=== PATIENT | female | born 2000 | race Caucasian/White ===

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

== ENCOUNTER 2019-07-18 18:48 | Emergency (ER) | payer OTHER ==
[2019-07-18] MEDS ORDERED: NORMAL SALINE 1000 ML 1,000 ML IV ONE (19:27)
--- NOTE | 2019-07-18 19:28 | ER Document Report ---
ED Medical Screen (RME) - General Chief Complaint: Abdominal Pain Stated Complaint: ABDOMINAL PAIN Time Seen by Provider: 07/18/19 19:19 Mode of Arrival: Ambulatory Information source: Patient Notes: 19-year-old female presented to ED for periumbilical abdominal pain. She states she just stopped her cycle yesterday so she thought it was just cramping from post menstrual cycle. She states that the pain kept getting worse and she got nauseated. She states she has not had any fever. She states she ate pizza and cheese sticks about 2 hours ago but she already had the pain before this. Her bowel sounds are very hyperactive at this time. Abdomen is not firm. Patient states she feels like she is on her throat but she has not thrown up yet. She does not smoke drink or use any drugs. Patient states she is having normal bowel movements and has had several today but has not had any diarrhea. I have greeted and performed a rapid initial assessment of this patient. A comprehensive ED assessment and evaluation of the patient, analysis of test results and completion of medical decision making process will be conducted by an additional ED providers. TRAVEL OUTSIDE OF THE [place] IN LAST 30 DAYS: No - Related Data Allergies/Adverse Reactions: aripiprazole [From Abilify] Allergy (Verified 07/18/19 18:49) lamotrigine [From Lamictal] Allergy (Verified 07/18/19 18:49) Past Medical History - Social History Chew tobacco use (# tins/day): No Frequency of alcohol use: None Drug Abuse: None Pulmonary Medical History: Reports: Hx Asthma Renal/ Medical History: Denies: Hx Peritoneal Dialysis Musculoskeltal Medical History: Reports Hx Musculoskeletal Trauma Psychiatric Medical History: Reports: Hx Depression Traumatic Medical History: Reports: Hx Fractures - Right foot - Immunizations Immunizations up to date: No Hx Diphtheria, Pertussis, Tetanus Vaccination: No - She does not remember when she got the last tetanus shot History of Influenza Vaccine for 08/2017 - 01/2018 Season: Unknown Physical Exam - Vital signs Vitals: Temp Pulse Resp BP Pulse Ox 98.6 F 91 20 124/75 98 07/18/19 18:55 07/18/19 18:55 07/18/19 18:55 07/18/19 18:55 07/18/19 18:55 Course - Vital Signs Vital signs: Temp Pulse Resp BP Pulse Ox 98.6 F 91 20 124/75 98 07/18/19 18:55 07/18/19 18:55 07/18/19 18:55 07/18/19 18:55 07/18/19 18:55
[2019-07-18 20:14] LABS: ABSOLUTE BASOPHILS # (AUTO) 0.1 10^3/uL (0.0-0.2); ABSOLUTE EOSINOPHILS # (AUTO) 0.1 10^3/uL (0.0-0.6); ABSOLUTE LYMPHOCYTES (AUTO) 1.6 10^3/uL (0.5-4.7); ABSOLUTE MONOCYTES (AUTO) 0.3 10^3/uL (0.1-1.4); ABSOLUTE NEUT (AUTO) 2.1 10^3/uL (1.7-8.2); BASOPHILS % (AUTO) 1.4 % (0-2); HEMATOCRIT 30.1 % (36.0-47.0); HEMOGLOBIN 9.9 g/dL (12.0-15.5); LYMPHOCYTES % (AUTO) 38.1 % (13-45); MEAN CORPUSCULAR HEMOGLOBIN 24.6 pg (27.0-33.4); MEAN CORPUSCULAR HGB CONC 32.9 g/dL (32.0-36.0); MEAN CORPUSCULAR VOLUME 75 fl (80-97); MONOCYTES % (AUTO) 7.8 % (3-13); PLATELET COUNT 245 10^3/uL (150-450); RED BLOOD COUNT 4.03 10^6/uL (3.72-5.28); SEGMENTED NEUTROPHILS % (AUTO) 50.7 % (42-78); TOTAL CELLS COUNTED % (AUTO) 100 %; WHITE BLOOD COUNT 4.2 10^3/uL (4.0-10.5)
[2019-07-18 20:18] LABS: APPEARANCE,URINE SLIGHTLY-CLOUDY; BILIRUBIN,URINE NEGATIVE (NEGATIVE); COLOR,URINE YELLOW; GLUCOSE, URINE NEGATIVE (NEGATIVE); KETONES,URINE NEGATIVE (NEGATIVE); LEUKOCYTE ESTERASE,URINE TRACE (NEGATIVE); NITRITE,URINE NEGATIVE (NEGATIVE); PROTEIN,URINE NEGATIVE (NEGATIVE); URINE SPECIFIC GRAVITY 1.011; UROBILINOGEN,URINE NEGATIVE mg/dL (<2.0)
[2019-07-18 20:45] LABS: ALKALINE PHOSPHATASE 71 U/L (38-126); ANION GAP 13 (5-19); ASPARTATE AMINO TRANSFERASE 26 U/L (14-36); BILIRUBIN,DIRECT 0.2 mg/dL (0.0-0.4); BILIRUBIN,TOTAL 0.2 mg/dL (0.2-1.3); BLOOD UREA NITROGEN 12 mg/dL (7-20); CALCIUM 9.9 mg/dL (8.4-10.2); CARBON DIOXIDE 25 mmol/L (22-30); CHLORIDE 104 mmol/L (98-107); GLUCOSE 100 mg/dL (75-110); TOTAL PROTEIN 8.1 g/dL (6.3-8.2)
[2019-07-18] MEDS ORDERED: ONDANSETRON ODT 4 MG TAB (6 TAB/ER DISP) PO PRN (21:44)
--- NOTE | 2019-07-18 21:44 | ER Document Report ---
ED GI/ - General Chief Complaint: Abdominal Pain Stated Complaint: ABDOMINAL PAIN Time Seen by Provider: 07/18/19 19:19 Mode of Arrival: Ambulatory Notes: Patient is an otherwise healthy 19-year-old female presents emergency department chief complaint of mid abdominal pain with nausea that began just prior to arrival. Patient reports she had had the symptoms for approximately 30 minutes before she came to the ED. Patient reports from the pain first started she thought maybe it was menstrual cramps. She states that the pain persisted so she came to the ER. Patient reports immediately after pain started she ate pizza and cheese sticks but reports she has not been hungry since that time. She does feel nausea but has not vomited or had any diarrhea. Patient denies history of any abdominal surgeries. TRAVEL OUTSIDE OF THE [place] IN LAST 30 DAYS: No - Related Data Allergies/Adverse Reactions: aripiprazole [From Abilify] Allergy (Verified 07/18/19 18:49) lamotrigine [From Lamictal] Allergy (Verified 07/18/19 18:49) Past Medical History - General Information source: Patient - Social History Smoking Status: Never Smoker Chew tobacco use (# tins/day): No Frequency of alcohol use: None Drug Abuse: None Family History: Reviewed & Not Pertinent Patient has suicidal ideation: No Patient has homicidal ideation: No Pulmonary Medical History: Reports: Hx Asthma Renal/ Medical History: Denies: Hx Peritoneal Dialysis Musculoskeletal Medical History: Reports Hx Musculoskeletal Trauma Psychiatric Medical History: Reports: Hx Depression Traumatic Medical History: Reports: Hx Fractures - Right foot - Immunizations Immunizations up to date: No Hx Diphtheria, Pertussis, Tetanus Vaccination: No - She does not remember when she got the last tetanus shot Review of Systems - Review of Systems Constitutional: No symptoms reported EENT: No symptoms reported Cardiovascular: No symptoms reported Respiratory: No symptoms reported Gastrointestinal: Abdominal pain, Nausea Genitourinary: No symptoms reported Female Genitourinary: No symptoms reported Musculoskeletal: No symptoms reported Skin: No symptoms reported Hematologic/Lymphatic: No symptoms reported Neurological/Psychological: No symptoms reported Physical Exam - Vital signs Vitals: Temp Pulse Resp BP Pulse Ox 98.6 F 91 20 124/75 98 07/18/19 18:55 07/18/19 18:55 07/18/19 18:55 07/18/19 18:55 07/18/19 18:55 - Notes Notes: PHYSICAL EXAMINATION: GENERAL: Well-appearing, well-nourished and in no acute distress. HEAD: Atraumatic, normocephalic. EYES: Pupils equal round and reactive to light, extraocular movements intact, conjunctiva are normal. ENT: Nares patent, oropharynx clear without exudates. Moist mucous membranes. NECK: Normal range of motion, supple without lymphadenopathy LUNGS: Breath sounds clear to auscultation bilaterally and equal. No wheezes rales or rhonchi. HEART: Regular rate and rhythm without murmurs ABDOMEN: Soft, nondistended abdomen. Mild mid-abd tenderness. No guarding, no rebound. No masses appreciated. Female : deferred Musculoskeletal: Normal range of motion, no pitting or edema. No cyanosis. NEUROLOGICAL: Cranial nerves grossly intact. Normal speech, normal gait. Normal sensory, motor exams PSYCH: Normal mood, normal affect. SKIN: Warm, Dry, normal turgor, no rashes or lesions noted. Course - Re-evaluation Re-evalutation: Laboratory 07/18/19 07/18/19 07/18/19 19:29 19:29 19:29 WBC 4.2 RBC 4.03 Hgb 9.9 L Hct 30.1 L MCV 75 L MCH 24.6 L MCHC 32.9 RDW 15.0 H Plt Count 245 Lymph % (Auto) 38.1 [place] % (Auto) 7.8 Eos % (Auto) 2.0 Baso % (Auto) 1.4 Absolute Neuts (auto) 2.1 Absolute Lymphs (auto) 1.6 Absolute Monos (auto) 0.3 Absolute Eos (auto) 0.1 Absolute Basos (auto) 0.1 Seg Neutrophils % 50.7 Sodium 142.3 Potassium 4.0 Chloride 104 Carbon Dioxide 25 Anion Gap 13 BUN 12 Creatinine 0.67 Est GFR ( Amer) > 60 Est GFR (MDRD) Non-Af > 60 Glucose 100 Calcium 9.9 Total Bilirubin 0.2 Direct Bilirubin 0.2 Neonat Total Bilirubin Not Reportable Neonat Direct Bilirubin Not Reportable Neonat Indirect Bili Not Reportable AST 26 ALT 14 Alkaline Phosphatase 71 Total Protein 8.1 Albumin 5.0 Lipase 145.8 Serum HCG, Qual NEGATIVE Urine Color Urine Appearance Urine pH Ur Specific [place] Urine Protein Urine Glucose (UA) Urine Ketones Urine Blood Urine Nitrite Urine Bilirubin Urine Urobilinogen Ur Leukocyte Esterase Urine WBC (Auto) Urine RBC (Auto) Squamous Epi Cells Auto Urine Mucus (Auto) Urine Ascorbic Acid 07/18/19 19:29 WBC RBC Hgb Hct MCV MCH MCHC RDW Plt Count Lymph % (Auto) [place] % (Auto) Eos % (Auto) Baso % (Auto) Absolute Neuts (auto) Absolute Lymphs (auto) Absolute Monos (auto) Absolute Eos (auto) Absolute Basos (auto) Seg Neutrophils % Sodium Potassium Chloride Carbon Dioxide Anion Gap BUN Creatinine Est GFR ( Amer) Est GFR (MDRD) Non-Af Glucose Calcium Total Bilirubin Direct Bilirubin Neonat Total Bilirubin Neonat Direct Bilirubin Neonat Indirect Bili AST ALT Alkaline Phosphatase Total Protein Albumin Lipase Serum HCG, Qual Urine Color YELLOW Urine Appearance SLIGHTLY-CLOUDY Urine pH 7.0 Ur Specific [place] 1.011 Urine Protein NEGATIVE Urine Glucose (UA) NEGATIVE Urine Ketones NEGATIVE Urine Blood NEGATIVE Urine Nitrite NEGATIVE Urine Bilirubin NEGATIVE Urine Urobilinogen NEGATIVE Ur Leukocyte Esterase TRACE H Urine WBC (Auto) 4 Urine RBC (Auto) 0 Squamous Epi Cells Auto 4 Urine Mucus (Auto) RARE Urine Ascorbic Acid NEGATIVE Ptaient appears well, no pain on re-examination. Labs as recorded above are unremarkable. Encouraged patient to return if pain persists or become worse as outlined in d/c papers. Pt and spouse in agreeance with plan of care. - Vital Signs Vital signs: Temp Pulse Resp BP Pulse Ox 99.1 F 87 16 115/87 H 100 07/18/19 21:53 07/18/19 21:53 07/18/19 21:53 07/18/19 21:53 07/18/19 21:53 - Laboratory Result Diagrams: 07/18/19 19:29 07/18/19 19:29 Laboratory results interpreted by me: 07/18/19 07/18/19 19:29 19:29 Hgb 9.9 L Hct 30.1 L MCV 75 L MCH 24.6 L RDW 15.0 H Ur Leukocyte Esterase TRACE H Discharge - Discharge Clinical Impression: Abdominal pain Qualifiers: Abdominal location: periumbilical Qualified Code(s): R10.33 - Periumbilical pain Condition: Stable Disposition: HOME, SELF-CARE Additional Instructions: Abdominal Pain There are many causes of abdominal pain. Pain can mean a serious problem requiring surgery (such as appendicitis). It can also be an innocent problem th at goes away on its own (such as a viral infection). Often, time must pass to determine the cause of pain. The physician does not feel that hospitalization is necessary, at present. Things may change within the next 24 hours. Call the doctor or come back for re- examination if any problems occur, such as: (1) Pain that becomes more severe, steady, or becomes concentrated in one specific area. Also, pain that is more severe with movement or coughing. (2) Vomiting that persists or becomes more frequent. (3) Blood in the vomitus, urine, or bowel movements. Blood in the stool may have a tarry or black appearance. (4) Shaking chills or fever greater than 100 degrees F. (5) The abdomen becomes more distended or swollen. (6) Bowel movements cease. (7) Failure to improve as expected. Observation for Appendicitis At this time, the abdominal pain does not seem to be appendicitis. Our next "test" will be passage of time. If you have early appendicitis, signs will appear to help us make the diagnosis. Most of the time, the pain goes away. In these cases, the pain is usually due to a virus in the lymph glands near the appendix, or due to an ovarian cyst or ovulation. Unless the pain is gone, you should come back for a recheck. This is usually done in 8 to 12 hours. Be sure you understand your follow-up instructions. Come back immediately if: (1) the pain becomes much more severe and sharply increases with movement or coughing, (2) vomiting becomes frequent, (3) there is blood in the vomit, urine, or bowel movements, (4) there are shaking chills or fever, or (5) the abdomen becomes more distended or swollen. Take nausea medication as prescribed. As we discussed please return to the emergency department if you develop any of the above symptoms or worsen in any way. Prescriptions: Ondansetron [Zofran Odt 4 mg Tablet] 1 - 2 tab PO Q4H PRN #15 tab.rapdis PRN Reason: For Nausea/Vomiting
[2019-07-18 21:55] VITALS: BP 115/87
== END 2019-07-18 21:56 | disposition home or self-care (01) ==
LOC: ER 18:48
DX: R10.33 Periumbilical pain (principal); R11.0 Nausea; J45.909 Unspecified asthma, uncomplicated
CPT/HCPCS: 99284; 96360; 36415; 83690; 84703; 85025; 80053; 81001; J7030

== ENCOUNTER 2020-05-07 17:52 | Emergency (ER) | payer OTHER ==
--- NOTE | 2020-05-07 18:07 | ER Document Report ---
ED Medical Screen (RME) - General Chief Complaint: Cat Bite Stated Complaint: CAT SCRATCHES/LEFT LEG Time Seen by Provider: 05/07/20 18:06 Mode of Arrival: Ambulatory Information source: Patient Notes: 20-year presents to ED today for a cat scratch on Saturday. She states that she was trying to feed a stray cat food when it attacked her biting and scratching her. She states she does not know if his immunizations are up-to-date she does not know if the cat is healthy and she does not know the cat. She does not know when her last tetanus was. I have ordered tetanus and rabies and she will get a CBC chemistry and blood culture and be seen in the emergency room. I have greeted and performed a rapid initial assessment of this patient. A comprehensive ED assessment and evaluation of the patient, analysis of test results and completion of medical decision making process will be conducted by an additional ED providers. TRAVEL OUTSIDE OF THE [place] IN LAST 30 DAYS: No - Related Data Allergies/Adverse Reactions: aripiprazole [From Abilify] Allergy (Verified 05/07/20 18:02) lamotrigine [From Lamictal] Allergy (Verified 05/07/20 18:02) Past Medical History - Social History Chew tobacco use (# tins/day): No Frequency of alcohol use: None Drug Abuse: None Pulmonary Medical History: Reports: Hx Asthma Renal/ Medical History: Denies: Hx Peritoneal Dialysis Musculoskeltal Medical History: Reports Hx Musculoskeletal Trauma Psychiatric Medical History: Reports: Hx Depression Traumatic Medical History: Reports: Hx Fractures - Right foot - Immunizations Immunizations up to date: No Hx Diphtheria, Pertussis, Tetanus Vaccination: No - She does not remember when she got the last tetanus shot Physical Exam - Vital signs Vitals: Temp Pulse Resp BP 99.0 F 115 H 16 132/80 H 05/07/20 17:57 05/07/20 17:57 05/07/20 17:57 05/07/20 17:57 Course - Vital Signs Vital signs: Temp Pulse Resp BP Pulse Ox 99 F 115 H 16 132/80 H 05/07/20 18:03 05/07/20 17:57 05/07/20 17:57 05/07/20 17:57
[2020-05-07] MEDS ORDERED: DIPH/PERTUSS(ACELL)/TETANUS VAC/PF 0.5 ML SYR (>=10YO) IM ONE (18:12)
[2020-05-07] MEDS ORDERED: RABIES IMMUNE GLOBULIN INJ/PF 300 UNIT/ML VIAL IM ONE (18:12)
[2020-05-07] MEDS ORDERED: RABIES VACCINE (PCEC)/PF 2.5 UNIT/1 ML KIT IM ONE (18:12)
[2020-05-07 19:57] LABS: ABSOLUTE LYMPHOCYTES (AUTO) 1.3 10^3/uL (0.5-4.7); ABSOLUTE MONOCYTES (AUTO) 0.2 10^3/uL (0.1-1.4); ABSOLUTE NEUT (AUTO) 2.2 10^3/uL (1.7-8.2); BASOPHILS % (AUTO) 1.3 % (0-2); HEMATOCRIT 36.4 % (36.0-47.0); HEMOGLOBIN 12.2 g/dL (12.0-15.5); LYMPHOCYTES % (AUTO) 34.1 % (13-45); MEAN CORPUSCULAR HEMOGLOBIN 28.4 pg (27.0-33.4); MEAN CORPUSCULAR HGB CONC 33.4 g/dL (32.0-36.0); MEAN CORPUSCULAR VOLUME 85 fl (80-97); PLATELET COUNT 231 10^3/uL (150-450); RED BLOOD COUNT 4.29 10^6/uL (3.72-5.28); RED CELL DISTRIBUTION WIDTH 13.4 % (11.5-14.0); SEGMENTED NEUTROPHILS % (AUTO) 57.6 % (42-78); TOTAL CELLS COUNTED % (AUTO) 100 %; WHITE BLOOD COUNT 3.8 10^3/uL (4.0-10.5)
[2020-05-07 20:08] LABS: ALBUMIN 4.8 g/dL (3.5-5.0); ALKALINE PHOSPHATASE 78 U/L (38-126); ANION GAP 10 (5-19); ASPARTATE AMINO TRANSFERASE 21 U/L (14-36); BILIRUBIN,TOTAL 0.4 mg/dL (0.2-1.3); BLOOD UREA NITROGEN 15 mg/dL (7-20); CALCIUM 9.6 mg/dL (8.4-10.2); CARBON DIOXIDE 28 mmol/L (22-30); CHLORIDE 100 mmol/L (98-107); GLUCOSE 88 mg/dL (75-110); POTASSIUM 4.1 mmol/L (3.6-5.0)
[2020-05-07] MEDS ORDERED: AMOXICILLIN TR/POT CLAVULANATE 875-125 MG TAB PO ONE (20:50)
--- NOTE | 2020-05-07 20:55 | ER Document Report ---
ED General - General Chief Complaint: Cat Bite Stated Complaint: CAT SCRATCHES/LEFT LEG Time Seen by Provider: 05/07/20 18:06 Mode of Arrival: Ambulatory Notes: Patient is a 20-year-old white female with no reported past medical history presents to the emergency department today with a chief complaint of cat bite and scratch to the left anterior thigh that occurred on Saturday, 4 days ago. She states that she was at the [employer] and noticed a healthy-appearing white and black spotted cat and she felt that forward and attempted to try and walk up to it to feed it. She states the cat lunged at her biting and scratching the left anterior thigh and then ran off. She states the cat did not appear ill. She denies any abscess formations were significant erythema around the wounds. She denies any proximal streaking or fever. She states her last tetanus was in "middle school". She denies any significant drainage from the wound. TRAVEL OUTSIDE OF THE [place] IN LAST 30 DAYS: No - Related Data Allergies/Adverse Reactions: aripiprazole [From Abilify] Allergy (Verified 05/07/20 18:02) lamotrigine [From Lamictal] Allergy (Verified 05/07/20 18:02) Past Medical History - General Information source: Patient - Social History Smoking Status: Never Smoker Chew tobacco use (# tins/day): No Frequency of alcohol use: None Drug Abuse: None Family History: Reviewed & Not Pertinent Patient has homicidal ideation: No Pulmonary Medical History: Reports: Hx Asthma Renal/ Medical History: Denies: Hx Peritoneal Dialysis Musculoskeletal Medical History: Reports Hx Musculoskeletal Trauma Psychiatric Medical History: Reports: Hx Depression Traumatic Medical History: Reports: Hx Fractures - Right foot - Immunizations Immunizations up to date: No Hx Diphtheria, Pertussis, Tetanus Vaccination: No - She does not remember when she got the last tetanus shot Review of Systems - Review of Systems Skin: Other - Bite/puncture and abrasion -: Yes All other systems reviewed and negative Physical Exam - Vital signs Vitals: Temp Pulse Resp BP 99.0 F 115 H 16 132/80 H 05/07/20 17:57 05/07/20 17:57 05/07/20 17:57 05/07/20 17:57 - General General appearance: Appears well, Alert In distress: None - Respiratory Respiratory status: No respiratory distress Chest status: Nontender Breath sounds: Normal Chest palpation: Normal - Cardiovascular Rhythm: Regular Heart sounds: Normal auscultation - Extremities General lower extremity: Other - Full range of motion left lower extremity. Normal gait - Neurological Neuro grossly intact: Yes Cognition: Normal Orientation: AAOx4 Jannteh Coma Scale Eye Opening: Spontaneous Janneth Coma Scale Verbal: Oriented Ozark Coma Scale Motor: Obeys Commands Oz[place] Coma Scale Total: 15 Speech: Normal Motor strength normal: LUE, RUE, LLE, RLE Sensory: Normal - Psychological Associated symptoms: Normal affect, Normal mood - Skin Skin Color: Other - Multiple superficial puncture wounds to the left anterior thigh with localized erythema around the puncture wound edges. No expanding cellulitis or proximal streaking. No palpable regional lymphadenopathy. No drainage from the site. No induration or fluctuance. Course - Re-evaluation Re-evalutation: 05/07/20 20:53 Patient is complete with animal control form. Given that this was a domesticated animal that appeared healthy in nature and is living in a known location, do not feel that rabies vaccination and immunoglobulin would be pertinent in this case. Patient's tetanus was updated and she will be started on Augmentin. Counseled her regarding the importance of outpatient follow-up and advised that she return here or any ER immediately with any new, persistent or worsening symptoms. She verbalized understood and agreed. - Vital Signs Vital signs: Temp Pulse Resp BP Pulse Ox 99 F 115 H 16 132/80 H 05/07/20 18:03 05/07/20 17:57 05/07/20 17:57 05/07/20 17:57 - Laboratory Result Diagrams: 05/07/20 19:35 05/07/20 19:35 Laboratory results interpreted by me: 05/07/20 19:35 WBC 3.8 L Discharge - Discharge Clinical Impression: Cat bite Qualifiers: Encounter type: initial encounter Qualified Code(s): W55.01XA - Bitten by cat, initial encounter Condition: Stable Disposition: HOME, SELF-CARE Instructions: Animal Bites ([facility]) Additional Instructions: Follow-up with your regular doctor in 2 to 3 days for reevaluation. Return here or any ER immediately with any new, persistent or worsening symptoms. Prescriptions: Amoxicillin/Potassium Clav [Augmentin 875-125 Tablet] 1 tab PO Q12 #19 tablet
[2020-05-07 21:16] VITALS: BP 111/73
== END 2020-05-07 21:16 | disposition home or self-care (01) ==
LOC: ER 17:52
DX: S70.372A Other superficial bite of left thigh, initial encounter (principal); W55.01XA Bitten by cat, initial encounter; Y93.K9 Activity, other involving animal care; Y92.512 Supermarket, store or market as the place of occurrence of the external cause; S70.312A Abrasion, left thigh, initial encounter; W55.03XA Scratched by cat, initial encounter; Z23 Encounter for immunization; J45.909 Unspecified asthma, uncomplicated; Z88.8 Allergy status to other drugs, medicaments and biological substances
CPT/HCPCS: 99283; 96372; 90471; 90472; 36415; 87040; 85025; 80053; 90715; 90675; 90375; J3490

== ENCOUNTER 2020-08-06 01:36 | Emergency (ER) | payer OTHER ==
[2020-08-06] MEDS ORDERED: ALPRAZOLAM 0.25 MG TABLET PO ONE (03:01)
--- NOTE | 2020-08-06 03:06 | ER Document Report ---
ED General - General Chief Complaint: Tremor Stated Complaint: SPASMS Time Seen by Provider: 08/06/20 02:40 Primary Care Provider: SAIGE FIERRO MD [HONORARY] - Follow up as needed TRAVEL OUTSIDE OF THE [place] IN LAST 30 DAYS: No - HPI Context: This is a 20-year-old female who presents to the emergency department complaining of worsening "tics" that she says of been present for several months. Patient states she is seeing a psychiatrist and is currently on psychotropic medications that do not seem to be helping her symptoms. Patient states she got some "particularly bad news" regarding her family earlier tonight which has exacerbated her symptoms. Patient states nothing seems to alleviate her symptoms. Patient states she decided to come to the emergency department to "see if some special tests could be done" to give her a definite diagnosis in terms of what is causing her symptoms. Patient is complaining of tics which involve her suddenly hitting her chest with her fist or stuttering on certain words repeatedly. Patient wants to know if there is some way to discern if her symptoms are primarily anxiety driven or are neurologically driven. Associated symptoms: Other - See HPI Exacerbated by: Other - See HPI Relieved by: Other - See HPI - Related Data Allergies/Adverse Reactions: aripiprazole [From Abilify] Allergy (Verified 05/07/20 18:02) lamotrigine [From Lamictal] Allergy (Verified 05/07/20 18:02) Home Medications: Latuda. Cluming cream Past Medical History - General Information source: Patient - Social History Smoking Status: Never Smoker Chew tobacco use (# tins/day): No Frequency of alcohol use: Occasional Drug Abuse: None Family History: Reviewed & Not Pertinent Pulmonary Medical History: Reports: Hx Asthma Renal/ Medical History: Denies: Hx Peritoneal Dialysis Musculoskeletal Medical History: Reports Hx Musculoskeletal Trauma Psychiatric Medical History: Reports: Hx Attention Deficit Hyperactivity Disorder, Hx Depression Traumatic Medical History: Reports: Hx Fractures - Right foot - Immunizations Immunizations up to date: No Hx Diphtheria, Pertussis, Tetanus Vaccination: No - She does not remember when she got the last tetanus shot Review of Systems - Review of Systems Constitutional: No symptoms reported EENT: No symptoms reported Cardiovascular: No symptoms reported Respiratory: No symptoms reported Gastrointestinal: No symptoms reported Genitourinary: No symptoms reported Female Genitourinary: No symptoms reported Musculoskeletal: No symptoms reported Skin: No symptoms reported Hematologic/Lymphatic: No symptoms reported Neurological/Psychological: See HPI -: Yes All other systems reviewed and negative Physical Exam - Vital signs Vitals: Temp Pulse Resp BP Pulse Ox 98.7 F 101 H 16 117/81 98 08/06/20 01:42 08/06/20 01:42 08/06/20 01:42 08/06/20 01:42 08/06/20 01:42 - Notes Notes: CONSTITUTIONAL [Vital signs reviewed, Patient appears to be in no acute distress at this time.] HEAD [Atraumatic, Normocephalic.] EYES [Eyes are normal to inspection, No discharge from eyes, Extraocular muscles intact, Sclera are normal, Conjunctiva are normal.] NECK [Normal ROM, No jugular venous distention, No meningeal signs, no carotid bruit.] RESPIRATORY CHEST [Chest is nontender, Breath sounds normal, No respiratory distress.] CARDIOVASCULAR [RRR, No murmurs, Normal S1 S2, No rub, No gallop.] ABDOMEN [Abdomen is nontender, No pulsatile masses, No other masses, Bowel sounds normal, No distension, No peritoneal signs, No hernias.] BACK [There is no CVA Tenderness, There is no tenderness to palpation, Normal inspection.] UPPER EXTREMITY [Inspection normal, No cyanosis, No clubbing, No edema, 2+ radial pulses.] LOWER EXTREMITY [Inspection normal, No cyanosis, No clubbing, No edema, No calf tenderness, 2+ femoral pulses.] NEURO Patient struck her lying chest with her fist during initial interview and examination. Patient states this is an involuntary tach. Patient has grossly normal speech with the exception of stuttering or stammering with a word from time to time at the end of the sentence. Patient is able to make eye contact when addressed.] SKIN [Skin is warm, Skin is dry, Skin is normal color.] LYMPHATIC [No adenopathy in neck.] PSYCHIATRIC [Patient has a slightly odd affect. This MD is unable to assess if the patient's symptoms are voluntary or involuntary] Course - Re-evaluation Re-evalutation: 08/06/20 03:18 This MD discussed options with patient in terms of medical screening exam that c ould be done. This MD informed the patient that there are no "special tests" that can be done that would definitely give her a diagnosis in terms of the etiology of her symptoms. However, patient has not tried anxiolytic such as alprazolam. Patient states she would be willing to try a short course of this medication to see if it alleviates her symptoms. The reasoning behind using a traditional anxiolytic such as alprazolam would be to see if the patient gets some relief with her anxiety and in turn relief of what she reports to be tic- like symptoms. Based on the patient's vital signs, presentation, physical exam I do not see evidence of a acute neurologic emergency or psychiatric emergency at this time. I think it is reasonable to at least try a short course of benzodiazepine therapy and outpatient follow-up with her psychiatrist. - Vital Signs Vital signs: Temp Pulse Resp BP Pulse Ox 98.7 F 101 H 16 117/81 98 08/06/20 01:42 08/06/20 01:42 08/06/20 01:42 08/06/20 01:42 08/06/20 01:42 Discharge - Discharge Clinical Impression: Anxiety-like symptoms Condition: Stable Disposition: HOME, SELF-CARE Additional Instructions: Return to the Emergency Department without delay if any worse. HOME CARE INSTRUCTIONS & INFORMATION: Thank you for choosing us for your medical needs. We hope you're satisfied with the care you received. After you leave, you must properly care for your problem and, at the same time, observe its progress. Any condition can change. Some illnesses can change rapidly over hours or days. If your condition worsens, return to the Emergency Department or see your physician promptly. ABOUT YOUR X-RAYS AND EKG'S: If you had an EKG or X-rays taken, they have been read by the Emergency Physician. The X-rays and EKG's will also be read by a Radiologist or Video Library Assistant within 24 hours. If discrepancies are noted, you will be notified by telephone. Please be certain the ED has a correct telephone number & address where you can be reached. Also, realize that some fractures or abnormalities do not show up on initial X-rays. If your symptoms continue, see your physician. ABOUT YOUR LABORATORY TEST: If you had laboratory tests, the results have been reviewed by the Emergency Physician. Some test results (for example cultures) may not be available for several days. You will be contacted if any test result shows you need additional treatment. Please be certain the ED has a correct telephone number and address where you can be reached. ABOUT YOUR MEDICATIONS: You will receive instructions on how to take your medicine on the prescription label you receive. Additional information may be provided by the Pharmacy. If you have questions afterwards, call the ED for clarification or further instructions. Some prescribed medications may cause drowsiness. Do not perform tasks such as driving a car or operating machinery without consulting your Pharmacist. If you feel you need a refill of pain medication, your condition will need re-evaluation. Please do not call for a refill of any medication. ABOUT YOUR SIGNATURE: Signature of this document acknowledges to followin. Understanding that you received emergency treatment and that you may be released before al medical problems are known or treated. Please be certain the ED has a correct phone number & address where you can be reached. 2. Acknowledgement that you will arrange for follow-up care as recommended. 3. Authorization for the Emergency Physician to provide information to your follow-up Physician in order to maximize your care. AT ANY TIME, IF YOUR SYMPTOMS CHANGE SIGNIFICANTLY OR WORSEN OR YOU DEVELOP NEW SYMPTOMS, RETURN TO THE EMERGENCY DEPARTMENT IMMEDIATELY FOR RE-EVALUATION. OUR GOAL IS TO PROVIDE EXCELLENT MEDICAL CARE! WE HOPE THAT WE HAVE MET YOUR EXPECTATIONS DURING YOUR EMERGENCY DEPARTMENT VISIT AND THAT YOU FEEL YOU HAVE RECEIVED EXCELLENT CARE! Anxiety The physician feels that some of your health problems are being caused by anxiety. Anxiety affects your health in many ways. Anxiety alone can cause palpitations, sweats, chest pains, abdominal pains, shortness of breath, and headaches. It contributes to ulcer disease, high blood pressure, irritable bowel syndrome, and has been shown to cause flare-ups of many other diseases. Anxiety is not a simple disorder to treat. If the anxiety is due to recent life stresses, you may simply need time to "work through" the changes. If the anxiety is due to an underlying unhappiness with yourself or due to psychiatric disturbance, professional help will be needed. Your physician can refer you for further help if needed. Anti-anxiety medication is occasionally given if the stress is acute or if you are having trouble sleeping. Chronic or frequent use of these medications is not a good idea because the body becomes reliant on it, preventing you from dealing with life's normal stresses. Prescriptions: Alprazolam [Xanax 0.25 mg Tablet] 0.25 mg PO Q8HP PRN 2 Days #6 tablet PRN Reason: Anxiety Referrals: SAIGE FIERRO MD [HONORARY] - Follow up as needed
[2020-08-06 03:46] VITALS: BP 103/71
== END 2020-08-06 03:45 | disposition home or self-care (01) ==
LOC: ER 01:36
DX: F41.9 Anxiety disorder, unspecified (principal); R25.1 Tremor, unspecified; Z79.899 Other long term (current) drug therapy; Z88.8 Allergy status to other drugs, medicaments and biological substances; J45.909 Unspecified asthma, uncomplicated
CPT/HCPCS: 99283

== ENCOUNTER 2020-09-27 19:08 | Emergency (ER) | payer OTHER ==
[2020-09-27 19:33] VITALS: BP 115/79
[2020-09-27] MEDS ORDERED: ACETAMINOPHEN 325 MG TABLET PO ONE (19:39)
--- NOTE | 2020-09-27 19:41 | ER Document Report ---
HPI - HPI Patient complains to provider of: Right wrist pain Time Seen by Provider: 09/27/20 19:37 Onset: This evening Onset/Duration: Persistent Quality of pain: Achy Pain Level: 3 Context: Patient states that she has a tic like Tourette's and that she was hitting her hand repetitively against a window. Patient states she has been hitting it against a table while here. Patient states that she has tenderness to the lateral aspect of her wrist. Patient is left-hand dominant. Associated Symptoms: Other - Right wrist tenderness Exacerbated by: Movement Relieved by: Denies Similar symptoms previously: No Recently seen / treated by doctor: No - ROS ROS below otherwise negative: Yes Systems Reviewed and Negative: Yes All other systems reviewed and negative - NEURO Neurology: DENIES: Weakness - GASTROINTESTINAL Gastrointestinal: DENIES: Nausea - REPRODUCTIVE Reproductive: DENIES: : - MUSCULOSKELETAL Musculoskeletal: REPORTS: Extremity pain - DERM Skin Color: Ecchymosis Skin Problems: None Past Medical History - General Information source: Patient - Social History Smoking Status: Never Smoker Frequency of alcohol use: None Drug Abuse: None Occupation: None Lives with: Family Family History: Reviewed & Not Pertinent - Medical History Medical History: Other - Tourette's-like tic Pulmonary Medical History: Reports: Hx Asthma Renal/ Medical History: Denies: Hx Peritoneal Dialysis Musculoskeletal Medical History: Reports Hx Musculoskeletal Trauma Psychiatric Medical History: Reports: Hx Attention Deficit Hyperactivity Disorder, Hx Depression Traumatic Medical History: Reports: Hx Fractures - Right foot Surgical Hx: Negative - Immunizations Immunizations up to date: No Hx Diphtheria, Pertussis, Tetanus Vaccination: No - She does not remember when she got the last tetanus shot Vertical Provider Document - CONSTITUTIONAL Agree With Documented VS: Yes Exam Limitations: No Limitations General Appearance: WD/WN, No Apparent Distress - INFECTION CONTROL TRAVEL OUTSIDE OF THE [place] IN LAST 30 DAYS: No - HEENT HEENT: Atraumatic, Normocephalic - NECK Neck: Normal Inspection, Supple - RESPIRATORY Respiratory: No Respiratory Distress - CARDIOVASCULAR Pulses: Normal: Radial - BACK Back: Normal Inspection - MUSCULOSKELETAL/EXTREMETIES Musculoskeletal/Extremeties: MAEW, FROM, Tender - Tenderness to ulnar aspect of right wrist with overlying area of ecchymosis, no deformity, Edema, Eccymosis - NEURO Level of Consciousness: Awake, Alert, Appropriate Motor/Sensory: No Motor Deficit, No Sensory Deficit Notes: Radial, median or ulnar deficit - DERM Integumentary: Warm, Dry, No Rash Course - Re-evaluation Re-evalutation: 09/27/20 20:05 Patient without any acute fracture, will immobilize and refer to orthopedics for any persistent pain or problems - Vital Signs Vital signs: Temp Pulse Resp BP Pulse Ox 98.9 F 114 H 17 115/79 100 09/27/20 19:32 09/27/20 19:32 09/27/20 19:32 09/27/20 19:32 09/27/20 19:32 - Diagnostic Test Radiology reviewed: Reports reviewed Procedures - Immobilization Right Wrist Pre-Proc Neuro Vasc Exam: Normal Immobilizer type: Cock-up Performed by: PCT Post-Proc Neuro Vasc Exam: Normal Alignment checked and good: Yes Discharge - Discharge Clinical Impression: Right wrist sprain Qualifiers: Encounter type: initial encounter Qualified Code(s): S63.501A - Unspecified sprain of right wrist, initial encounter Contusion Qualifiers: Encounter type: initial encounter Contusion area: wrist Laterality: right Qualified Code(s): S60.211A - Contusion of right wrist, initial encounter Condition: Stable Disposition: HOME, SELF-CARE Instructions: Use of Nhfm-Rqy-Aonmkur Ibuprofen ([facility]), Ice & Elevation ([facility]), Wrist Sprain ([facility]), Temporary Splint ([facility]) Additional Instructions: Return immediately for any new or worsening symptoms Followup with your primary care provider, call tomorrow to make a followup a ppointment Wear splint for the next 4 to 5 days and then remove. If still having pain follow-up with orthopedics for further evaluation Referrals: JORDAN SULLIVAN MD [COMMUNITY BASED STAFF] - Follow up as needed [facility] [Provider Group] - Follow up as needed
--- NOTE | 2020-09-27 20:01 | RADIOLOGY REPORT (SQ) ---
EXAM DESCRIPTION: WRIST RIGHT 3 VIEWS IMAGES COMPLETED DATE/TIME: 09/27/2020 7:52 pm REASON FOR STUDY: r wrist injury, pt hit window COMPARISON: None. NUMBER OF VIEWS: Three views. TECHNIQUE: AP, lateral, and oblique radiographic images acquired of the right wrist. LIMITATIONS: None. FINDINGS: MINERALIZATION: Normal. BONES: No acute fracture or dislocation. No worrisome bone lesions. Normal alignment. SOFT TISSUES: No soft tissue swelling. No foreign body. OTHER: No other significant finding. IMPRESSION: NEGATIVE STUDY OF THE RIGHT WRIST. NO RADIOGRAPHIC EVIDENCE OF ACUTE INJURY. TECHNICAL DOCUMENTATION: JOB ID: [id number] 2010 [employer]- All Rights Reserved Reading location - IP/workstation name: [email or web address]
== END 2020-09-27 20:30 | disposition home or self-care (01) ==
LOC: ER 19:08
DX: S63.501A Unspecified sprain of right wrist, initial encounter (principal); S60.211A Contusion of right wrist, initial encounter; W22.09XA Striking against other stationary object, initial encounter
CPT/HCPCS: 99283